=== PATIENT | female | born 1930 | race Caucasian/White ===

== ENCOUNTER 2020-06-21 17:14 | Observation (INO) | payer OTHER ==
[~2020-06-21] VITALS: Ht 157.5 cm; Wt 72.8 kg
[~2020-06-21 17:14] MED LIST: ASCO500 PO; CALCA500CH PO; CALCIUM PO; CARV25 PO; CHOL10002 PO; Doxazosin Mesyla8 MG PO; ENTRESTO 49 MG1 EACH PO; FEROSUL325 M1 PO; FOLI1 PO; FURO20 PO; Lopressor 25 mg25 MG PO; POTA10T PO; Pravastatin Sod40 MG PO; TOCO400 PO; VALSARTAN-HCTZ1 EAC1 PO; WARF5 PO
[2020-06-21 18:04] LABS: BASOPHILS ABSOLUTE AUTO 0.05 K/mm3 (0.00-0.23); BASOPHILS PERCENT AUTO 1 % (0-2); EOSINOPHILS ABSOLUTE AUTO 0.26 K/mm3 (0.00-0.68); EOSINOPHILS PERCENT AUTO 4 % (0-6); Hematocrit 39.8 % (33.0-51.0); Hemoglobin 12.7 g/dL (11.5-16.0); IMMATURE GRAN ABSOLUTE AUTO 0.02 K/mm3 (0.00-0.10); IMMATURE GRAN PERCENT AUTO 0 % (0-1); LYMPHOCYTES ABSOLUTE AUTO 2.56 K/mm3 (0.84-5.20); LYMPHOCYTES PERCENT AUTO 36 % (21-46); MONOCYTES PERCENT AUTO 10 % (4-13); Mean Corpuscular HGB 29.6 pg (26.0-34.0); Mean Corpuscular HGB Conc 31.9 g/dL (31.5-36.5); Mean Corpuscular Volume 93 fL (80-100); Mean Platelet Volume 10.9 fL (9.1-12.4); NEUTROPHILS ABSOLUTE AUTO 3.46 K/mm3 (1.96-9.15); NEUTROPHILS PERCENT AUTO 49 % (41-73); Platelet Count 190 K/mm3 (150-400); RDW Coefficient Variation 13.4 % (11.7-14.2); RDW Standard Deviation 45.2 fL (35.1-46.3); Red Blood Cell Count 4.29 M/mm3 (3.80-5.20); White Blood Cell Count 7.05 K/mm3 (4.00-11.30)
[2020-06-21 18:22] LABS: International Normalized Ratio 1.98; Prothrombin Time Results 20.4 Sec (9.7-11.5)
[2020-06-21 19:35] LABS: Anion Gap 7 mmol/L (6-16); Blood Urea Nitrogen 26 mg/dL (8-24); CO2, Blood 27 mmol/L (21-32); Calcium, Blood 9.2 mg/dL (8.5-10.1); Chloride, Blood 108 mmol/L (98-108); Creatinine, Blood 0.93 mg/dL (0.40-1.00); Glomerular Filtration Rate >60 (60-); Glucose, Blood 88 mg/dL (70-99); Potassium, Blood 3.9 mmol/L (3.5-5.5); Sodium, Blood 142 mmol/L (136-145); Troponin I <0.015 ng/mL (0.000-0.040)
[2020-06-21] MEDS ORDERED: WARF3 PO ×2 (20:49)
[2020-06-21] MEDS ORDERED: METO50ER PO (20:50)
[2020-06-21] MEDS ORDERED: LOSA50 PO (20:50)
[2020-06-21 21:09] LABS: Source, Urine Clean Catch
[2020-06-21 21:12] LABS: Appearance, Urine Clear (Clear); Bilirubin, Urine Neg (Neg); Blood, Urine 2+ (Neg); Color, Urine Yellow (P-Yellow); Glucose Qualitative, Urine Neg (Neg); Ketones, Urine 1+ (Neg); Leukocyte Esterase, Urine 1+ (Neg); Nitrite, Urine Neg (Neg); Protein, Urine Neg (Neg); Urobilinogen, Urine NORM (Normal); pH, Urine 6.5 (5.0-8.0)
[2020-06-21] MEDS ORDERED: METF500 PO (21:21)
[2020-06-21] MEDS ORDERED: FERSU300 PO (21:22)
[2020-06-21] MEDS ORDERED: OYSTER SHELL 51 EACH PO (21:22)
[2020-06-21 21:23] LABS: Bacteria Few /hpf; Squamous Epithelial Cells Few /hpf (Few); White Blood Cells, Urine 0-2 /hpf (0-5)
--- NOTE | 2020-06-21 23:00 | NUR ---
RECEIVED REPORT FROM DESTINIED RN. PT TRANSPORTED TO MEDICAL FLOOR VIA GURNEY, AMBULATED TO BED WITH FWW AND ONE ASSIST. PT SETTLED INTO ROOM, VS TAKEN. ORIENTED TO UNIT. NO S/S ACUTE DISTRESS NOTED. RESPS EVEN AND UNLABORED. PT DENIES NEEDS AT THIS TIME. CALL LIGHT, POSSESSIONS IN REACH, BED IN LOW POSITION WITH ALARMS ON. WILL CONTINUE TO MONITOR.
[2020-06-21 23:48] LABS: Prothrombin Time Results 20.6 Sec (9.7-11.5)
[2020-06-22 05:08] LABS: BASOPHILS ABSOLUTE AUTO 0.04 K/mm3 (0.00-0.23); BASOPHILS PERCENT AUTO 1 % (0-2); EOSINOPHILS ABSOLUTE AUTO 0.22 K/mm3 (0.00-0.68); EOSINOPHILS PERCENT AUTO 4 % (0-6); Hematocrit 37.4 % (33.0-51.0); Hemoglobin 11.4 g/dL (11.5-16.0); IMMATURE GRAN ABSOLUTE AUTO 0.02 K/mm3 (0.00-0.10); IMMATURE GRAN PERCENT AUTO 0 % (0-1); LYMPHOCYTES ABSOLUTE AUTO 2.06 K/mm3 (0.84-5.20); LYMPHOCYTES PERCENT AUTO 36 % (21-46); MONOCYTES PERCENT AUTO 9 % (4-13); Mean Corpuscular HGB 28.5 pg (26.0-34.0); Mean Corpuscular HGB Conc 30.5 g/dL (31.5-36.5); Mean Corpuscular Volume 94 fL (80-100); Mean Platelet Volume 9.6 fL (9.1-12.4); NEUTROPHILS ABSOLUTE AUTO 2.89 K/mm3 (1.96-9.15); NEUTROPHILS PERCENT AUTO 51 % (41-73); Platelet Count 161 K/mm3 (150-400); RDW Coefficient Variation 13.2 % (11.7-14.2); RDW Standard Deviation 45.5 fL (35.1-46.3); White Blood Cell Count 5.73 K/mm3 (4.00-11.30)
[2020-06-22 05:27] LABS: International Normalized Ratio 1.84
[2020-06-22 05:33] LABS: Albumin, Blood 3.2 g/dL (3.4-5.0); Albumin/Globulin Ratio 0.9 (0.8-1.8); Bilirubin, Total 0.5 mg/dL (0.1-1.0); Bun/Creatinine Ratio 27.2 (12.0-20.0); Calcium, Blood 8.9 mg/dL (8.5-10.1); Creatinine, Blood 0.96 mg/dL (0.40-1.00); Globulin, Blood 3.5 g/dL (2.2-4.0); Potassium, Blood 4.1 mmol/L (3.5-5.5); Total Protein, Blood 6.7 g/dL (6.4-8.2)
--- NOTE | 2020-06-22 07:32 | NUR ---
SHIFT SUMMARY PT WATCHING TV, NO S/S ACUTE DISTRESS NOTED. WAS MONITORED EVERY 1-2 HOURS WITH NEEDS MET. HAS HAD NO ACUTE CHANGES IN CONDITION NOTED SINCE ARRIVAL TO MEDICAL FLOOR, SLEPT T/O. AMBULATED TO BATHROOM WITH 1 ASSIST WITH FWW. VS REVIEWED. DENIES NEEDS AT THIS TIME. CALL LIGHT, POSSESSIONS IN REACH, BED IN LOWEST POSITION WITH ALARMS ON. REPORT GIVEN TO BRIGIDO FORREST.
--- NOTE | 2020-06-22 09:30 | NUR ---
PT PLEASANT COOP A/O. SOMEWHAT WEAK IN ARMS. SQUEEZES MOSTLY EQUAL TO ME. FOOT PUSH UP DOWN IS WEAK, BUT MOSTLY EQUAL. SPEACH APPEARS TO ANSWER QUESTIONS APPROP. QUITE UNDERSTANDABLE. H/R REG, NO MURMER NOTED. PER TELE AFIB AT 87. LUNGS CLEAR, RESP EASY, UNLABORED ON R.A. BT X4 LAST BM YEST. VOIDS 1 ASST LITE CONTACT W/ FWW. BED IN LOW POSITION, CALL LITE IN REACH, CALLS APPROP
--- NOTE | 2020-06-22 15:07 | NUR ---
PT HAS BEEN QUITE PLEASANT TODAY. NO C/O PAIN. PT IS WEAK, BUT PRESENTS FUNCTIONAL. 1 ASST TO BATHROOM TO SHOWER. DAUGHTER ASSISTED SOME. NO NEW CONCERNS AT THIS TIME. NO SLURRED SPEACH NOTICED. BED IN LOW POSITION, CALL LITE IN REACH, CALLS APPROP
--- NOTE | 2020-06-23 04:25 | NUR ---
SHIFT SUMMARY- PT. A&O, SBA WITH AMBULATION. NO COMPLAINTS T/O THE NIGHT. ASLEEP MOST OF THE SHIFT. NO APPARENT DISTRESS NOTED. NO DEFICITS NOTED. PT. ANTICIPATING D/C TO HOME TODAY. CALL LIGHT WITHIN REACH AND SIDE RAILS UPX2. WILL CONT TO MONITOR.
[2020-06-23 04:59] LABS: International Normalized Ratio 1.92; Prothrombin Time Results 19.8 Sec (9.7-11.5)
[2020-06-23 09:14] LABS: BASOPHILS ABSOLUTE AUTO 0.04 K/mm3 (0.00-0.23); BASOPHILS PERCENT AUTO 1 % (0-2); EOSINOPHILS PERCENT AUTO 5 % (0-6); Hematocrit 35.9 % (33.0-51.0); Hemoglobin 11.2 g/dL (11.5-16.0); IMMATURE GRAN ABSOLUTE AUTO 0.01 K/mm3 (0.00-0.10); IMMATURE GRAN PERCENT AUTO 0 % (0-1); LYMPHOCYTES ABSOLUTE AUTO 1.97 K/mm3 (0.84-5.20); LYMPHOCYTES PERCENT AUTO 33 % (21-46); MONOCYTES ABSOLUTE AUTO 0.54 K/mm3 (0.16-1.47); MONOCYTES PERCENT AUTO 9 % (4-13); Mean Corpuscular HGB 29.8 pg (26.0-34.0); Mean Corpuscular HGB Conc 31.2 g/dL (31.5-36.5); Mean Corpuscular Volume 96 fL (80-100); Mean Platelet Volume 10.7 fL (9.1-12.4); NEUTROPHILS ABSOLUTE AUTO 3.15 K/mm3 (1.96-9.15); NEUTROPHILS PERCENT AUTO 52 % (41-73); Platelet Count 162 K/mm3 (150-400); RDW Coefficient Variation 13.4 % (11.7-14.2); RDW Standard Deviation 46.2 fL (35.1-46.3); Red Blood Cell Count 3.76 M/mm3 (3.80-5.20); White Blood Cell Count 6.01 K/mm3 (4.00-11.30)
[2020-06-23 09:34] LABS: Bun/Creatinine Ratio 24.1 (12.0-20.0); Creatinine, Blood 1.12 mg/dL (0.40-1.00); Potassium, Blood 3.8 mmol/L (3.5-5.5); Thyroid Stimulating Hormone 1.87 uIU/mL (0.360-4.800)
[2020-06-23] MEDS ORDERED: FAMO20 PO (11:13)
[2020-06-23] MEDS ORDERED: ONDA4ODT MM (11:14)
[2020-06-23] MEDS ORDERED: ASPI81CH PO (11:27)
--- NOTE | 2020-06-23 11:54 | NUR ---
Discharge Summary A/Ox4, pleasant and cooperative with care. Up in room x 1 SBA c FWW. Calls appropriately for needs. Patient had CT of neck this morning. Discharging to home with HH. Reviewed discharge paperwork with patient and daughter at bedside, copy provided. IV removed, WNL. Meds faxed to preferred pharmacy - [facility]. Will be escorted by Discharge Volunteer via w/c when patient is ready. Transportation home with daughter via personal vehicle.
== END 2020-06-23 12:30 | disposition home health service (06) ==
LOC: ER 17:14 → MEDS 17:15
PROVIDERS: Family Medicine; Student in an Organized Health Care Education/Training Program; ADMIT Internal Medicine
DX: G45.9 Transient cerebral ischemic attack, unspecified (principal); R79.1 Abnormal coagulation profile; K21.9 Gastro-esophageal reflux disease without esophagitis; I11.0 Hypertensive heart disease with heart failure; I50.9 Heart failure, unspecified; D64.9 Anemia, unspecified; M10.9 Gout, unspecified; I07.1 Rheumatic tricuspid insufficiency; G47.30 Sleep apnea, unspecified; I49.5 Sick sinus syndrome; E11.36 Type 2 diabetes mellitus with diabetic cataract; H25.10 Age-related nuclear cataract, unspecified eye; I48.91 Unspecified atrial fibrillation; E78.5 Hyperlipidemia, unspecified; Z79.01 Long term (current) use of anticoagulants; Z79.84 Long term (current) use of oral hypoglycemic drugs; Z79.899 Other long term (current) drug therapy; Z95.2 Presence of prosthetic heart valve; Z88.8 Allergy status to other drugs, medicaments and biological substances; Z23 Encounter for immunization
CPT/HCPCS: 36415; 70450; 70498; 80048; 80053; 81001; 82947; 84443; 84484; 85025; 85610; 85651; 87086; 92523; 93005; 93010; 93306; 97112; 97116; 97162; 97165; 99285-25; A9270-GY; Q9967